=== PATIENT | female | born 1980 | race Two or more races ===

== ENCOUNTER 2019-03-07 23:30 | Observation (INO) | payer SELFPAY ==
[~2019-03-07] VITALS: Ht 147 cm; Wt 68.5 kg
[2019-03-08 03:33] VITALS: BP 136/69
== END 2019-03-08 03:35 | disposition home or self-care (01) ==
LOC: 4S 23:30
PROVIDERS: ADMIT Obstetrics & Gynecology; ATTEND Obstetrics & Gynecology
DX: O62.9 Abnormality of forces of labor, unspecified (principal); Z3A.38 38 weeks gestation of pregnancy; Z79.899 Other long term (current) drug therapy
CPT/HCPCS: 76815; 80307 ×8; 81002; G0378 ×2